=== PATIENT | female | born 1955 | race Caucasian/White ===

== ENCOUNTER 2022-12-14 16:44 | Inpatient (IN) | payer BC, MEDICARE ==
[~2022-12-14] VITALS: Ht 162.6 cm; Wt 68.0 kg
[2022-12-14 04:00] VITALS: BP 130/68
[2022-12-14] MEDS ORDERED: METO25TA6 PO (17:13)
[2022-12-14] MEDS ORDERED: IV NORMAL SALINE 500 ML BAG IV ONE (17:45)
[2022-12-14] MEDS ORDERED: PROCHLORPERAZINE EDISYLATE 10 MG/2 ML VIAL IV ONE (17:45)
[2022-12-14 17:58] LABS: HEMATOCRIT 43.9 % (31.2-41.9); PLATELET COUNT (AUTO) 378 K/uL (179-408)
[2022-12-14 18:22] LABS: ALANINE AMINOTRANSFERASE 26 U/L (14-59); ALKALINE PHOSPHATASE 79 U/L (50-136); ASPARTATE AMINOTRANSFERASE 12 U/L (15-37); BILIRUBIN,DIRECT 0.1 mg/dL (0.0-0.2); BILIRUBIN,TOTAL 0.3 mg/dL (0.2-1.0); CARBON DIOXIDE 25 mmol/L (21-32); CHLORIDE 101 mmol/L (98-107); CREATININE 0.7 mg/dL (0.6-1.3); GLUCOSE 142 mg/dL (74-106); POTASSIUM 3.8 mmol/L (3.5-5.1); TOTAL PROTEIN, SERUM 8.1 g/dL (6.4-8.2); UREA NITROGEN, BLOOD 22 mg/dL (7-18)
--- NOTE | 2022-12-14 18:26 | NUR ---
Followed up with teleneurology, stated that patient is assigned to Dr. Italo Brown and that he will be notified that patient is back in the room.
--- NOTE | 2022-12-14 18:36 | NUR ---
Called [facility] again and spoke with Isaias who reached out to dispatch. Dispatch contacted Dr. Brown and Isaias stated that he will call back.
--- NOTE | 2022-12-14 18:45 | NUR ---
Tele Neurologist assessing patient.
[2022-12-14] MEDS ORDERED: PROCHLORPERAZINE EDISYLATE 10 MG/2 ML VIAL ONE (19:04)
[2022-12-14] MEDS ORDERED: diphenhydrAMINE 50 MG/1 ML VIAL ONE (19:04)
[2022-12-14] MEDS ORDERED: diphenhydrAMINE 50 MG/1 ML VIAL IV ONE (19:15)
--- NOTE | 2022-12-14 19:15 | NUR ---
Recieved report from Christelle CASPER.
[2022-12-14] MEDS ORDERED: MECLIZINE HCL 25 MG TABLET PO ONE (19:30)
[2022-12-14] MEDS ORDERED: MECLIZINE HCL 25 MG TABLET ONE (19:41)
--- NOTE | 2022-12-14 19:48 | NUR ---
Pt was given water and tolerated it well. Patient passed swallow test.
--- NOTE | 2022-12-14 20:08 | NUR ---
Dr. Webber on panel call with Danny Morales NP.
[2022-12-14] MEDS ORDERED: REMEDY ESSENTIAL ZINC PASTE 113 GM TP PRN (20:45)
[2022-12-14] MEDS ORDERED: MAGNESIUM HYDROXIDE 30 ML LIQUID UDC PO PRN (20:45)
[2022-12-14] MEDS ORDERED: ONDANSETRON 4 MG/2 ML VIAL IV PRN (20:45)
[2022-12-14] MEDS ORDERED: IV NS 1000 ML 1,000 ML IV PRN (20:45)
[2022-12-14] MEDS ORDERED: ACETAMINOPHEN 325 MG TABLET PO PRN (20:45)
[2022-12-14] MEDS ORDERED: MECLIZINE HCL 25 MG TABLET PO PRN (21:00)
[2022-12-14] MEDS ORDERED: ATORVASTATIN 40 MG TABLET PO SCH (21:00)
--- NOTE | 2022-12-14 21:30 | NUR ---
Recieved room number 311 for patient.
--- NOTE | 2022-12-14 22:01 | NUR ---
Called [facility] and gave report to Edgardo CASPER.
[2022-12-14] MEDS ORDERED: ENOXAPARIN SODIUM 40 MG/0.4 ML DISP.SYRIN SQ SCH (22:28)
--- NOTE | 2022-12-14 22:48 | NUR ---
Patient was transferred to third floor via gurney. TREMAYNE Velasquez made aware of patient's arrival.
[2022-12-15 06:21] LABS: HEMATOCRIT 39.4 % (31.2-41.9); MEAN CORPUSCULAR HEMOGLOBIN 31.7 uug (24.7-32.8); MEAN CORPUSCULAR VOLUME 90.2 fL (75.5-95.3); PLATELET COUNT (AUTO) 330 K/uL (179-408)
[2022-12-15 06:46] LABS: CREATININE 0.6 mg/dL (0.6-1.3); MAGNESIUM 1.7 mg/dL (1.8-2.4)
[2022-12-15] MEDS ORDERED: PANTOPRAZOLE SODIUM 40 MG TABLET.DR PO SCH (07:00)
[2022-12-15] MEDS ORDERED: ASPIRIN 81 MG TAB.CHEW PO SCH (09:00)
[2022-12-15] MEDS: MAGNESIUM SULFATE/D5W 100 ML IV SCH ×2 (10:20→11:23)
[2022-12-15 11:57] VITALS: BP 133/71
[2022-12-15 16:02] VITALS: BP 113/62
[2022-12-15] MEDS ORDERED: ASPI-495 PO (17:58)
[2022-12-15] MEDS ORDERED: ATOR40TA PO (17:58)
--- NOTE | 2022-12-15 18:49 | NUR ---
dc orders received noted and carried out,dc heplock per md orders,dc instruction and education given to the pt.pt left the facility via private car in stable condition
[2022-12-16 01:21] LABS: THYROID STIMULATING HORMONE 1.295 mIU/mL (0.358-3.740)
== END 2022-12-15 18:46 | disposition home or self-care (01) | DRG 149 ==
LOC: ER 16:46 → TELE3 22:23
PROVIDERS: ADMIT Nurse Practitioner Family; ATTEND Nurse Practitioner Family
DX: H81.399 Other peripheral vertigo, unspecified ear (principal); G45.9 Transient cerebral ischemic attack, unspecified; E86.0 Dehydration; D72.829 Elevated white blood cell count, unspecified; R79.89 Other specified abnormal findings of blood chemistry; I10 Essential (primary) hypertension; Z79.899 Other long term (current) drug therapy; R11.2 Nausea with vomiting, unspecified; R29.700 NIHSS score 0
CPT/HCPCS: 36415; 70450; 70496; 71045; 83735; 84100; 84443; 84484; 85025; 85730; 93005; 93307; A4663; G0378; J0780; J1200; J1650; J3475; J3490; J7040; J8597